=== PATIENT | female | born 1960 | race Caucasian/White ===

== ENCOUNTER → 2019-06-03 | Day surgery (SDC) | payer OTHER ==
[2019-05-30 11:27] LABS: BASOPHILS # (AUTO) 0.1 (0.0-0.1); BASOPHILS % 0.8 % (0.0-1.0); EOSINOPHILS # (AUTO) 0.4 (0.0-0.4); EOSINOPHILS % 5.5 % (0.0-6.0); HEMATOCRIT 47.7 % (34.2-44.1); HEMOGLOBIN 15.8 g/dL (12.0-16.0); LYMPHOCYTES # (AUTO) 1.3 (1.0-3.2); LYMPHOCYTES % 16.6 % (18.0-39.1); MEAN CORPUSCULAR HEMOGLOBIN 31.3 pg (28-32); MEAN CORPUSCULAR HGB CONC 33.1 g/dL (31-35); MEAN CORPUSCULAR VOLUME 94.6 fL (81-99); MONOCYTES # (AUTO) 0.5 (0.2-0.8); MONOCYTES % 6.1 % (4.4-11.3); NEUTROPHILS # (AUTO) 5.4 (2.1-6.9); NEUTROPHILS % 70.5 % (38.7-80.0); PLATELET COUNT 166 x10e3/uL (140-360); RED BLOOD COUNT 5.04 x10e6/uL (3.6-5.1); RED CELL DISTRIBUTION WIDTH 13.7 % (11.7-14.4)
[2019-05-30 11:48] LABS: ALANINE AMINOTRANSFERASE 29 IU/L (0-55); ALBUMIN/GLOBULIN RATIO 1.2 (0.8-2.0); ALKALINE PHOSPHATASE 93 IU/L (40-150); ANION GAP 17.5 mmol/L (8-16); BLOOD UREA NITROGEN 13 mg/dL (7-26); BUN/CREATININE RATIO 15 (6-25); CALCIUM 9.9 mg/dL (8.4-10.2); CARBON DIOXIDE 20 mmol/L (22-29); CHLORIDE 105 mmol/L (98-107); CREATININE, SERUM 0.87 mg/dL (0.57-1.11); EST GLOMERULAR FILTRATION RATE > 60 ML/MIN (60-); GLUCOSE 296 mg/dL (74-118); POTASSIUM 4.5 mmol/L (3.5-5.1); SODIUM 138 mmol/L (136-145)
[2019-05-30 11:49] LABS: INR 0.86; PROTHROMBIN TIME 12.2 seconds (11.9-14.5)
[~2019-06-03] VITALS: Ht 162.6 cm; Wt 77.1 kg
[2019-06-03] VITALS (13 sets, daily range): BP systolic 86–161; BP diastolic 52–112
[~2019-06-03] MED LIST: ATORVASTATIN CA20 MG PO; FENTANYL CITRATE/PF 100MCG/2 ML INJ ONE; GABAPENTIN400 MG PO; HEPARIN SOD/SOD CHLORIDE 2,000 ML ONE; HUMALOG100 UNIT/3 SC; IOPAMIDOL 370 MG/ML 200 ML INFUS..BTL INJ ONE; ISOSORBIDE MONO30 MG PO; LIDOCAINE HCL 2% LOCAL 20 ML VIAL ONE; LISINOPRIL10 MG PO; METOPROLOL PO; MIDAZOLAM HCL 2 MG/2 ML VIAL ONE; PLAVIX75 MG PO; SODIUM CHLORIDE 0.9% 1000ML 1,000 ML ONE; TOUJEO SC; VERAPAMIL HCL 2.5 MG/ML 2 ML VIAL ONE
--- OUTSIDE RECORDS SUMMARY | 2019-06-03 09:46 | XMS REPORT ---
[facility] Address Unknown Phone Unavailable Care Team Providers Care Forklift Supervisor Name Role Phone Unavailable Unavailable Payers Payer Name Policy Type Policy Number Effective Date Expiration Date Problems This patient has no known problems. Allergies, Adverse Reactions, Alerts Allergy Name Allergy Type Status Severity Reaction(s) Onset Date Inactive Date Treating Clinician Comments erythromycin base DA Active U 2018-11-24 00:00:00 metformin DA Active U 2018-11-24 00:00:00 erythromycin base DA Active U 2016-11-24 00:00:00 metformin DA Active U 2016-11-24 00:00:00 Medications This patient has no known medications. Encounters Start Date/Time End Date/Time Encounter Type Admission Type Attending Clinicians Care Facility Care Department Encounter ID 2017-04-10 00:00:00 2017-04-10 00:00:00 Outpatient [facility] [id number] 2017-04-10 00:00:00 2017-04-10 00:00:00 Outpatient [facility] [id number] 2017-04-10 00:00:00 2017-04-10 00:00:00 Outpatient [facility] [id number]
--- NOTE | 2019-07-18 16:27 | Operative Report ---
DATE OF PROCEDURE: 06/03/2019 SURGEON: Berny Arriaga DO PROCEDURES PERFORMED: 1. Conscious sedation, 30 minutes. 2. Selective coronary angiography x2. 3. Left heart catheterization. PREPROCEDURE DIAGNOSIS: Abnormal stress test with a history of coronary artery disease. POSTPROCEDURE DIAGNOSIS: Multivessel coronary artery disease. ESTIMATED BLOOD LOSS: Less than 10 mL. SPECIMENS REMOVED: None. PROCEDURE IN DETAIL: After informed consent was obtained, the patient was brought to the cardiac catheterization laboratory in a fasting and nonsedated state. Bilateral groins were prepped and draped in usual sterile fashion. The right anterior wrist was prepped and draped in usual sterile fashion. A 2% lidocaine was infiltrated over the right anterior wrist for local anesthesia. Using a micropuncture needle, the right radial artery was accessed via modified Seldinger technique and a 5/6 slender sheath was placed. Next, diagnostic coronary angiography and left heart catheterization were performed using a TIG catheter. Hemostasis was achieved via TR band. The patient tolerated the procedure well with no immediate complications and transferred to her room in stable condition. PROCEDURAL FINDINGS: 1. Left main has a 40% to 50% stenosis. 2. Proximal left anterior descending coronary artery has a patent stent present. In the midportion, there is a 70% stenosis in the [place] artery. Distal to this, there is another patent stent. There is diffuse disease in the distal LAD. 3. Left circumflex coronary has an ostial 60% to 70% stenosis. The first obtuse marginal vessel has a patent stent. The midportion of the left circumflex distal to the OM1 has a 70% to 80% severe stenosis. Distal to this stenosis, there is a stent extending into the second obtuse marginal vessel. Distal to this stent, there is a 70% stenosis. 4. The right coronary artery has a proximal 99% stenosis. The rest RCA has diffuse moderate disease. The midportion of the RCA has a patent stent. There are collaterals filling the PDA from the left coronary system. 5. Left ventricular end-diastolic pressure is 13 mmHg. RECOMMENDATIONS: Referred for bypass surgery. Berny Arriaga DO BM/MODL /[id number]
== END | disposition home or self-care (01) ==
LOC: CATH LAB 09:43
PROVIDERS: ATTEND Internal Medicine Cardiovascular Disease
DX: I25.118 Atherosclerotic heart disease of native coronary artery with other forms of angina pectoris (principal); I70.219 Atherosclerosis of native arteries of extremities with intermittent claudication, unspecified extremity; E13.8 Other specified diabetes mellitus with unspecified complications; I25.2 Old myocardial infarction; I10 Essential (primary) hypertension; I82.493 Acute embolism and thrombosis of other specified deep vein of lower extremity, bilateral; R94.39 Abnormal result of other cardiovascular function study; I83.811 Varicose veins of right lower extremity with pain; Q82.0 Hereditary lymphedema; Z01.812 Encounter for preprocedural laboratory examination; Z79.02 Long term (current) use of antithrombotics/antiplatelets; Z79.4 Long term (current) use of insulin; Z79.82 Long term (current) use of aspirin; Z95.5 Presence of coronary angioplasty implant and graft; Z82.49 Family history of ischemic heart disease and other diseases of the circulatory system
CPT/HCPCS: 36415; 80053; 85025; 85610; 93458; C1887; J2001; J2250; J3010; J7030; Q9967

== ENCOUNTER 2020-03-13 11:47 | Observation (INO) | payer MEDICARE, OTHER ==
[2020-03-11 10:20] LABS: INR 0.85; PROTHROMBIN TIME 12.1 seconds (11.9-14.5)
[2020-03-11 10:26] LABS: ALANINE AMINOTRANSFERASE 21 IU/L (0-55); ALBUMIN 3.7 g/dL (3.5-5.0); ALBUMIN/GLOBULIN RATIO 1.2 (0.8-2.0); ALKALINE PHOSPHATASE 92 IU/L (40-150); ANION GAP 16.7 mmol/L (8-16); BLOOD UREA NITROGEN 17 mg/dL (7-26); BUN/CREATININE RATIO 18 (6-25); CALCIUM 9.8 mg/dL (8.4-10.2); CARBON DIOXIDE 25 mmol/L (22-29); CHLORIDE 102 mmol/L (98-107); CREATININE, SERUM 0.94 mg/dL (0.57-1.11); EST GLOMERULAR FILTRATION RATE > 60 ML/MIN (60-); GLUCOSE 376 mg/dL (74-118); POTASSIUM 5.7 mmol/L (3.5-5.1); SODIUM 138 mmol/L (136-145)
[2020-03-11 11:38] LABS: BASOPHILS # (AUTO) 0.1 (0.0-0.1); EOSINOPHILS # (AUTO) 0.2 (0.0-0.4); EOSINOPHILS % 4.8 % (0.0-6.0); HEMATOCRIT 41.6 % (34.2-44.1); HEMOGLOBIN 13.1 g/dL (12.0-16.0); LYMPHOCYTES # (AUTO) 1.2 (1.0-3.2); LYMPHOCYTES % 23.4 % (18.0-39.1); MEAN CORPUSCULAR HEMOGLOBIN 29.4 pg (28-32); MEAN CORPUSCULAR HGB CONC 31.5 g/dL (31-35); MEAN CORPUSCULAR VOLUME 93.3 fL (81-99); MONOCYTES # (AUTO) 0.5 (0.2-0.8); NEUTROPHILS % 60.4 % (38.7-80.0); PLATELET COUNT 146 x10e3/uL (140-360); RED BLOOD COUNT 4.46 x10e6/uL (3.6-5.1); RED CELL DISTRIBUTION WIDTH 12.6 % (11.7-14.4)
--- NOTE | 2020-03-11 13:30 | NUR ---
Dr. Arriaga notified of potassium 5.7 and glucose 376. No new orders at this time.
[2020-03-12 15:13] VITALS: BP 143/68
[~2020-03-13] VITALS: Ht 160 cm; Wt 73.9 kg
[2020-03-13] VITALS (15 sets, daily range): BP systolic 126–184; BP diastolic 60–83
--- NOTE | 2020-03-13 09:14 | NUR ---
Spoke with Moraima in the lab to follow up on COVID test results. Moraima notified that patient is to have procedure today tentatively for 1500. Moraima stated she will follow up with her director.
--- NOTE | 2020-03-13 10:55 | NUR ---
Spoke with Adal in the lab regarding follow up for COVID test results. Adal notified that the physician wants to move procedure time to 1330. Adal stated she has not seen that patient's results yet come through and that she will be in touch with her Director.
[~2020-03-13 11:47] MED LIST changes: +ACIPHEX20 MG PO; +ASPIR 8181 MG PO; -FENTANYL CITRATE/PF 100MCG/2 ML INJ ONE; -HEPARIN SOD/SOD CHLORIDE 2,000 ML ONE; -IOPAMIDOL 370 MG/ML 200 ML INFUS..BTL INJ ONE; -LIDOCAINE HCL 2% LOCAL 20 ML VIAL ONE; +LIPITOR20 MG PO; +METOPROLOL SUCC50 MG PO; -MIDAZOLAM HCL 2 MG/2 ML VIAL ONE; -SODIUM CHLORIDE 0.9% 1000ML 1,000 ML ONE; +TOUJEO SOL300 UNIT/1 SC; -VERAPAMIL HCL 2.5 MG/ML 2 ML VIAL ONE
--- OUTSIDE RECORDS SUMMARY | 2020-03-13 11:49 | XMS REPORT | Clinical Summary ---
Author Author [facility] Organization [facility] Address Unknown Phone Unavailable Care Team Providers Care Sheet Ironworker Name Role Phone PCP Unavailable Allergies Comments Active Allergy Reactions Severity Noted Date pt will have a bad stomach pain. Erythromycin (Bulk) Other Medium 01/15/2007 Metformin (Bulk) Diarrhea 01/15/2007 Medications End Date Status Medication Sig Dispensed Refills Start Date Active nicotine (NICODERM CQ) 7 Apply 1 Patch 56 Patch 0 mg/24 hr to skin as 5 patchIndications: Smoker directed unmotivated to quit every 24 hours. Active nystatin (MYCOSTATIN) Apply to 30 g 0 07/09 0 100,000 unit/gram affected area 5 ointmentIndications: 2 times Tinea corporis, Rash and daily. other nonspecific skin eruption Active triamcinolone (KENALOG) Apply to 80 g 0 0.025 % affected area 5 ointmentIndications: 2 times Tinea corporis, Rash and daily. other nonspecific skin eruption Active aspirin (ASPIRIN) 81 mg Chew and 60 tablet 3 chewable swallow 1 5 tabletIndications: tablet by Peripheral vascular mouth daily. disease Active citalopram (CELEXA) 20 mg Take 1 tablet 90 tablet 1 tabletIndications: by mouth 5 Depression daily. Active pentoxifylline (TRENTAL) Take 1 tablet 270 tablet 1 400 mg extended release by mouth 3 5 tabletIndications: times daily Arteriosclerosis, with meals. Coronary artery disease involving chipewwa coronary artery of chipewwa heart without angina pectoris, Diabetes mellitus due to underlying condition without complications, IC (intermittent claudication), S/P angioplasty with stent, Smoker unmotivated to quit Active busPIRone (BUSPAR) 5 mg Take 1 tablet 90 tablet 1 tabletIndications: Smoker by mouth 3 5 unmotivated to quit times daily. Active INSULIN SYRINGE 0.5mL Use to inject 1 Box 3 30GX5/16" (ULTRA COMFORT) medication 5 syringe-needleIndications daily. Use a : Diabetes mellitus due new syringe to underlying condition each time. without complications Active ibuprofen (MOTRIN) 600 mg Take 1 tablet 30 tablet 0 tabletIndications: by mouth 5 Cellulitis of right lower every 8 hours extremity as needed for Pain or Fever. Active lancets 28 Check blood 100 Each 3 gaugeIndications: sugar 3 times 5 Diabetes mellitus, daily: before Hyperglycemia, Hemoglobin breakfast and A1c greater than 9.0% at bedtime, and once more before lunch or dinner. Active blood glucose test Check blood 50 Each 3 01 stripsIndications: sugar 3 5 Diabetes mellitus, times daily: Hyperglycemia, Hemoglobin before A1c greater than 9.0% breakfast and at bedtime, and once more before lunch or dinner. Active INSULIN SYRINGE 0.5mL Use to inject 100 Syringe 3 30GX5/16" (ULTRA COMFORT) medication 5 syringe-needleIndications daily. Use a : Diabetes mellitus, new syringe Hyperglycemia, Hemoglobin each time. A1c greater than 9.0% Active glimepiride (AMARYL) 1 mg Take 1 tablet 90 tablet 3 tabletIndications: by mouth 5 Diabetes mellitus every morning (before breakfast). Do not skip or delay meals while taking this medicine. Active metoprolol tartrate Take 1 tablet 180 tablet 3 06/06 (LOPRESSOR) 25 mg by mouth 2 6 tabletIndications: times daily. Essential hypertension, benign Active atorvastatin (LIPITOR) 20 Take 1 tablet 30 tablet 2 mg tabletIndications: by mouth at 6 Pure hypercholesterolemia bedtime nightly. Active traZODone (DESYREL) 50 mg Take 1 tablet 90 tablet 1 tabletIndications: by mouth at 6 Insomnia, unspecified bedtime nightly. Active pen needle, diabetic Inject under 1 Box 3 06/06 (NOVOFINE) 30 gauge x the skin 2 6 3" needlesIndications: times daily Type 2 diabetes mellitus Use as with complication, directed. without long-term current use of insulin Active gabapentin (NEURONTIN) Take 1 270 capsule 1 400 mg capsule by 6 capsuleIndications: Right mouth 3 times sided sciatica daily. Active rivaroxaban (XARELTO) 20 Take 1 tablet 30 tablet 2 mg tabletIndications: by mouth 6 Deep vein thrombosis daily (with (DVT) of iliac vein of dinner). right lower extremity, unspecified chronicity Active isosorbide mononitrate Take 30 mg by 0 (IMDUR) 30 mg extended mouth daily. release tablet Active isosorbide mononitrate Take 1 tablet 90 tablet 3 0 (IMDUR) 60 mg extended by mouth 7 release daily. tabletIndications: Essential hypertension, benign, Coronary artery disease involving chipewwa coronary artery of chipewwa heart without angina pectoris, Chronic systolic congestive heart failure Active atorvastatin (LIPITOR) 80 Take 1 tablet 90 tablet 3 mg tabletIndications: by mouth at 7 Coronary artery disease bedtime involving chipewwa coronary nightly. artery of chipewwa heart without angina pectoris, Peripheral vascular disease Active hydroCHLOROthiazide Take 0.5 30 tablet 3 (HYDRODIURIL) 25 mg tablets by 7 tabletIndications: mouth daily. Coronary artery disease involving chipewwa coronary artery of chipewwa heart without angina pectoris, Peripheral vascular disease Active metoprolol succinate Take 1 tablet 90 tablet 3 (TOPROL XL) 100 mg by mouth 7 extended release daily. tabletIndications: Coronary artery disease involving chipewwa coronary artery of chipewwa heart without angina pectoris, Peripheral vascular disease Active metFORMIN (GLUCOPHAGE XR) Take 2 360 tablet 0 500 mg ER extended tablets by 7 release mouth 2 times tabletIndications: Type 2 daily LAST diabetes mellitus with REFILLS - complication, without Must be seen long-term current use of at [facility]. insulin Active gabapentin (NEURONTIN) Take 1 90 capsule 2 400 mg capsule by 7 capsuleIndications: PAD mouth 3 times (peripheral artery daily. disease) Active clopidogrel (PLAVIX) 75 Take 1 tablet 90 tablet 3 mg tabletIndications: by mouth 7 Peripheral vascular daily. disease, Coronary artery disease involving chipewwa coronary artery of chipewwa heart without angina pectoris Active lisinopril (ZESTRIL) 40 Take 1 tablet 90 tablet 3 mg tabletIndications: by mouth 7 Essential hypertension daily. with goal blood pressure less than 130/80 Active Problems Problem Noted Date Current non-adherence to medical treatment 6 Type 2 diabetes mellitus with complication, without l iván-term current use 06/22/2016 of insulin Coronary artery disease involving chipewwa coronary art samir of chipewwa heart 06/22/2016 without angina pectoris Chronic obstructive pulmonary disease with acute lowe r respiratory 06/22/2016 infection Essential hypertension with goal blood pressure less than 130/80 06/22/2016 Insomnia, unspecified 06/22/2016 PAD (peripheral artery disease) 06/22/2016 Overview: S/p bypass Popliteal bypass Single current episode of major depressive disorder 06/22/2016 DVT (deep venous thrombosis) 05/06/2016 Open wound of right thigh 02/01/2016 Deep incisional surgical site infection 10/08/2015 Peripheral vascular disease 12/31/2014 Depression 11/11/2014 Right sided sciatica 11/11/2014 CAD (coronary artery disease) 11/11/2014 Refused influenza vaccine 11/11/2014 IC (intermittent claudication) 11/11/2014 S/P angioplasty with stent 11/11/2014 Smoker unmotivated to quit 11/11/2014 Arteriosclerosis 05/02/2014 Lower back pain 06/20/2013 Diabetes mellitus 01/15/2007 Essential hypertension, benign 01/15/2007 Pure hypercholesterolemia 01/15/2007 Coronary artery disease 01/15/2007 Chronic obstructive pulmonary disease 01/15/2007 Hyperglycemia Hemoglobin A1c greater than 9.0% Immunizations Name Administration Dates Next Due Influenza Vaccine 09/11/2015 (Deferred: [place] Refused) Pneumoccoccal 07/18/2015 (Deferred: [place] Refused) Pneumococcal 13-valent 08/05/2015 conj 0.5 mL injection Family History Medical History Relation Name Comments Cancer Father Arthritis Maternal ovarian Grandmother Diabetes Mother Heart Mother Hypertension Mother Relation Name Status Comments Father (Age 57) Maternal Grandmother Mother (Age 57) Social History Date Tobacco Use Types Packs/Day Years Used Current Every Day Smoker Cigarettes 0.15 40 Smokeless Tobacco: Never Used Tobacco Cessation: Ready to Quit: Yes; C ounseling Given: Yes Comments: about 4/ a day Drinks/Week oz/Week Comments Alcohol Use 0 Standard drinks or equivalent 0.0 No Sex Assigned at Date Recorded Not on file Industry Job Start Date Occupation Not on file Not on file Not on file Travel End Travel History Travel Start No recent travel history available. Last Filed Vital Signs Not on file Plan of Treatment Health Maintenance Due Date Last Done Comments DM Foot Exam (Yearly) 1980 DM Retinal Exam (Yearly) 1980 Cervical Cancer Scrn (3 1983 Yrs) Breast Cancer Scrn 2002 (Yearly) Colorectal Cancer Scrn 2012 Annual (FIT/FOBT) Age 50 to 75 CORONARY ARTERY DISEASE 07/06/2017 07/06/2016, , 11/25/2014, AGE 18 AND UP Additional history exists DM HGBA1C (Yearly) 07/06/2017 07/06/2016, 015, 11/25/2014, Additional history exists Results Not on fileafter 03/13/2019 Insurance Type Payer Benefit Subscriber ID Effective Phone Address Plan / Dates Group [employer] [place] Effective [phone] [employer] [address] for all 2005 PLANNING dates [place] [place] [facility] [address] [employer] [place] Effective [phone] [employer] [address] for all [id number] PLANNING dates [place] [place] [facility] [address] Advance Directives Date Inactivated Comments Code Status Date Activated 10/09/2015 8:34 PM Full Code 10/07/2015 4:58 PM 09/22/2015 8:43 PM Full Code 09/17/2015 8:49 PM
--- OUTSIDE RECORDS SUMMARY | 2020-03-13 11:50 | XMS REPORT | Summary of Care ---
Author Author BRYCE Macdonald M.A. Organization Unknown Address [facility] Phone Unavailable Care Team Providers Care Naphthalene Operator Name Role Phone Rose Macdonald M.A. Unavailable Unavailable MAXIMO TEJEDA, SPIKE FRAGA Unavailable Unavailable RIKA MARSH DO Unavailable Unavailable SAROJ MORROW AL, KIRSTY Unavailable Unavailable WILY RODRIGUEZ MD Unavailable Unavailable Unavailable Unavailable Functional Status Name Dates Details Functional status health issues are not documented Status: Name Dates Details Cognitive status health issues are not d ocumented Status: Problems Name Dates Details Dysphagia (787.20, R13.10) Status: Active Bilateral carotid artery disease (447.9, I73.9) Status: Active 3-vessel CAD (414.00, I25.10) Status: Active Medications Name Dates Details Atorvastatin Calcium TABS Active Clopidogrel Bisulfate 75 MG Oral Tablet * Refills: 0 Active Gabapentin 100 MG TABS * Refills: 0 Active Lisinopril TABS * Refills: 0 Active Metoprolol Succinate ER 100 MG Oral Tablet Extended Release 24 Hour * Refills: 0 Active HumaLOG 100 UNIT/ML Subcutaneous Solution * Refills: 0 Active Aspirin 81 MG TABS * Refills: 0 Active traMADol HCl - 50 MG Oral Tablet * Refills: 0 Active Allergies and Adverse Reactions Name Dates Details erythromycin (Allergy) Status: Active metFORMIN HCl TABS (Allergy) Status: Act nehemiah Procedures Procedure Dates Details History of Coronary artery bypass graft Completed Immunization Name Dates Details Immunizations not documented Family History Name Dates Details Family history of Heart trouble (429.9, I51.9) Status: Active Social History Name Dates Details - Status: Name Dates Details Smoker. current status unknown Vital Signs Date Test Result Details [id number] BP Systolic 151 mm[Hg] Status: BP Diastolic 86 mm[Hg] Status: Weight 174 lb Status: Body Mass Index Calculated 29.87 kg/m2 Status: Body Surface Area Calculated 1.84 m2 Status: Height 64 in Status: [id number] BP Systolic 148 mm[Hg] Status: Comments: Lo cation: LUE; Position: Sitting BP Diastolic 83 mm[Hg] Status: Comments: Lo cation: LUE; Position: Sitting Weight 174.9 lb Status: Body Mass Index Calculated 30.98 kg/m2 Status: Body Surface Area Calculated 1.83 m2 Status: Height 63 in Status: Heart Rate 88 /min Status: Results Date Description Value Details [id number] XRAY Chest 2 views [id number] Chest 2 views SEE NOTES Comments: PA and lateral chest: Median sternotomy wires are noted. The aorta is tortuouswith calcification the arch. Left coronary stents are noted. Thecardiomediastinal silhouette, pulmonary vasculature and mary grace are otherwisewithin normal limits. There is linear subsegmental atelectasis in the bases,improving compared to 07/11/2019. The lungs and pleural spaces are otherwiseclear. There are no acute osseous abnormalities. There is no other significantchange.IMPRESSION:No acute radiographic abnormalities in the chest. [id number] by: Yogesh Melo MDDictated Date/time: 07/31/19 14:04Electronically Signed by: Yogesh Melo MD 07/31/1914:06FINAL REPORT [id number] GI Esophagus barium [place]o [id number] Esophagus barium swallow function video SEE NOTE S Comments: EXAM: Modified barium swallowHISTORY: Oropharyngeal phase dysphagiaCOMPARISON: 07/12/2019TECHNIQUE: Patient ingested different consistencies of liquids and solid food.Video was obtained. Fluoroscopy time 36 seconds. Reference air kerma 2.03 mGyFINDINGS:The patient tolerated thin liquid, nectar, pudding and cookie. No laryngealpenetration or aspiration is seen.Refer to complete report including dietary recommendations by speechpathologist.: [id number] by: Juan Farmer MDDictated Date/time: 08/13/19 16:16Electronically Signed by: Juan Farmer MD 08/13/1916:18FINAL REPORT Plan of Care Name Dates Details Planned Observations Planned Goals not documented Planned Encounters Appointment; WILY RODRIGUEZ M.D. On: 29-Aug-2019 14:30 Instructions Name Dates Details Instructions not documented Encounters Appointment; KIRSTY KYLE M.D. Encounter Diagnosis: Problem not documented On: 10-Jun-2019 11:45 Appointment; DR SAROJ SILVERMAN Encounter Diagnosis: Problem not documented On: 12-Jun-2019 6:30 Appointment; DR SAROJ SILVERMAN Encounter Diagnosis: Problem not documented On: 31-Jul-2019 11:00 Appointment; WILY RODRIGUEZ M.D. Encounter Diagnosis: Problem not documented On: 01-Aug-2019 9:45 Appointment; KIRSTY KYLE M.D. Encounter Diagnosis: Problem not documented On: 05-Aug-2019 14:15 Appointment; KIRSTY KYLE M.D. Encounter Diagnosis: Problem not documented On: 12-Aug-2019 14:45
--- NOTE | 2020-03-13 12:00 | NUR ---
1200pt in rm#9, prepped for procedure. Alert oriented and appropriate, PERRLA, respirations even and unlabored to room air. Pulses x4 extremities equal and palpable. Cap fill brisk < 3 sec. FOR PERIPHERAL ANGIO (Dr Arriaga) Skin warm and dry integrity appears intact in general. IV #22 left hand started and presents healthy w/o s/s of infiltration or complaint. Abdomen soft and supple. pt offered toileting, denies need to urinate or defecate. Personal affects with patient. Family at bedside. Pt and family verbalizes understanding of POC. No Pre-Op Meds. Pt notable nervous about procedure. No family waiting try 1st then son if no answer after procedure. PP Dp/Pt Doppler only left hand. Rt leg notably swollen.Denies CP or SOB hand off to Frankie RN ds/rn
--- NOTE | 2020-03-13 12:15 | NUR ---
1215BLOOD glucose 383 reported to sedation team ds/rn
[2020-03-13] MEDS ORDERED: HEPARIN SOD (PORCINE) 1000 UNIT/ML 30ML ONE (12:26)
[2020-03-13] MEDS ORDERED: HEPARIN SOD/SOD CHLORIDE 2,000 ML ONE (12:27)
[2020-03-13] MEDS ORDERED: FENTANYL CITRATE/PF 100MCG/2 ML INJ ONE ×2 (12:27→14:49)
[2020-03-13] MEDS ORDERED: MIDAZOLAM HCL 2 MG/2 ML VIAL ONE ×2 (12:27→14:24)
[2020-03-13] MEDS ORDERED: LIDOCAINE HCL 2% LOCAL 20 ML VIAL ONE (12:27)
[2020-03-13] MEDS ORDERED: SODIUM CHLORIDE 0.9% 1000ML 1,000 ML ONE (12:28)
[2020-03-13] MEDS ORDERED: NITROGLYCERIN/D5W 200 MCG/ML 250 ML ONE (12:28)
[2020-03-13] MEDS ORDERED: IOPAMIDOL 300MG/ML 100 ML INFUS..BTL IV ONE (12:28)
[2020-03-13] MEDS ORDERED: HYDRALAZINE HCL 20 MG/ML VIAL ONE (14:33)
[2020-03-13] MEDS ORDERED: CLOPIDOGREL BISULFATE 75 MG TAB ONE (15:13)
[2020-03-13] MEDS ORDERED: ASPIRIN 325 MG TAB ONE (15:13)
--- NOTE | 2020-03-13 15:13 | NUR ---
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 Bedside report received from Nando FRANCISCO. Identifierx2. Alert oriented and appropriate, PERRLA, respirations even and unlabored to room air. Pulses x4 extremities equal and strong. Pedal pulses PT/DP 2+/2+/2+/2+and marked. Cap fill brisk < [address] Arriaga sheath pull and floor down time may dc home after per pt request. Skin warm and dry integrity appears D/I. IV 22g to left hand presents healthy w/o s/s of infiltration or complaint. Abdomen soft and supple. pt offered toileting, denies need to urinate or defecate. No personal affects with patient. No Family must call for PU. Pt Currently w complaint of nausea . Paged Dr Arriaga. Received order Zofran 4mg ivpx2 with immediate relief noted. Observation bed ordered and house supv. noted ds/rn
--- NOTE | 2020-03-13 15:30 | NUR ---
1530p Zofran 4mg ivp immediate relief nausea noted. ds/rn
[2020-03-13] MEDS ORDERED: ONDANSETRON HCL INJ 2MG/ML 2ML 2 MG/ML VIAL ONE (15:38)
--- NOTE | 2020-03-13 16:56 | NUR ---
1700 ACT result [address] Arriaga recheck 1hr and call results Vs stable no gross issues pain,pallor,pressure or dysrhythmia. ds/rn
--- NOTE | 2020-03-13 17:06 | NUR ---
1700 updated per pt request pt will stay night due to long down time stable vs and ekg No gross issues pain pallor pressure or dysrhythmia ds/rn
--- NOTE | 2020-03-13 18:00 | NUR ---
1800 act resulted 195 [id number] in 1hr No gross issues pain,pallor,pressure or dysrhythmia ds/rn
--- NOTE | 2020-03-13 18:08 | Operative Report ---
DATE OF PROCEDURE: SURGEON: Berny Arriaga DO PROCEDURES PERFORMED: 1. Conscious sedation, 45 minutes. 2. Abdominal aortogram. 3. Bilateral extremity angiography. 4. Third order peripheral angiography of the left lower extremity. 5. Percutaneous transluminal angioplasty and stent placement to the mid superficial femoral artery. PREPROCEDURE DIAGNOSIS: Severe peripheral artery disease with rest pain. POSTPROCEDURE DIAGNOSIS: Severe peripheral artery disease with rest pain. ESTIMATED BLOOD LOSS: Less than 20 mL. SPECIMENS REMOVED: None. PROCEDURE IN DETAIL: After informed consent was obtained, the patient was brought to the cardiac catheterization laboratory in a fasting and nonsedated state. Bilateral groins were prepped and draped in usual sterile fashion. The patient received fentanyl and midazolam, administered by the field laborer nurse. Her physiologic status and conscious state were monitored by myself and field laborer staff. A 2% lidocaine was infiltrated over the right anterior groin for local anesthesia. Using micropuncture needle, the right common femoral artery was accessed via modified Seldinger technique and a 5-Sami sheath was placed. Abdominal aortography was performed using Omni Flush catheter. This was taken up over to the iliac bifurcation and runoff was performed. She has a previously placed stent in the proximal portion of the SFA, this has 70% stenosis. There are two tandem severe 99 subtotal stenosis in the mid portion of the femoral artery. She has three vessel runoff, although sluggish from the proximal stenotic lesions. I exchanged out input across and up and over 45 cm sheath. Heparin was administered for therapeutic anticoagulation. The lesion was crossed with a [place] Advantage wire. The distal portion was angioplastied with a 4 x 150 IN.PACT Admiral paclitaxel-coated balloon. The midportion was angioplastied with a 5 x 150 and IN.PACT Admiral paclitaxel-coated balloon. The stent was angioplastied with a 6 x 150 IN.PACT Admiral paclitaxel-coated balloon. There was mid dissection, so I tried to angioplast it again and tacked up the dissection wall. However, this remained, so I decided to stent the lesion and overlapped it in the prior stent with a 6 x 80 life stent. This was then post dilated with a 6 mm balloon. Final angiography confirmed excellent results from three-vessel runoff. I pulled the sheath back and performed angiography of the right lower extremity. Of note, I did perform a 3rd order peripheral angiography of the left lower extremity prior to intervention through a Seeker catheter. The sheath was exchanged out for a short 6-Sami sheath. Hemostasis will be achieved via manual pressure once her activated clotting time has reduced. The patient tolerated the procedure well. No immediate complications and transferred back to room in stable condition. IMPRESSION: Severe peripheral artery disease and in-stent restenosis in the left femoral artery status post successful intervention. She has three-vessel runoff on each leg. Her diomede right superficial femoral artery is occluded with a patent bypass to the popliteal area. RECOMMENDATIONS: Continue dual antiplatelet therapy and aggressive risk factor modification. DO REJI Adams/MODL /[id number]
--- NOTE | 2020-03-13 19:00 | NUR ---
1900 act 155 Received room 104 ds/rn
--- NOTE | 2020-03-13 19:00 | NUR ---
1899 act resulted 15 reported to technologist Mahad and Nando Acuna at bedside. NO gross issues pain,pallor,pressure or dysrhythmia. edgardo Addendum: 03/13/20 at 2102 by Marisela Delgadillo RN 1899 act result chart error [id number]. degardo
--- NOTE | 2020-03-13 19:14 | NUR ---
191 Nando RN at bedside sheath pull in progress No gross issues pain, pallor, pressure or dysrhythmia.Phone report to floor nurse
--- OUTSIDE RECORDS SUMMARY | 2020-03-13 19:36 | XMS REPORT | Clinical Summary ---
Author Author [facility] Organization [facility] Address Unknown Phone Unavailable Care Team Providers Care Ophthalmic Photographer Name Role Phone PCP Unavailable Allergies Comments [...] Arteriosclerosis, with meals. Coronary artery disease involving tribe coronary artery of tribe heart without angina pectoris, Diabetes mellitus due [...] Essential hypertension, benign, Coronary artery disease involving tribe coronary artery of tribe heart without angina pectoris, Chronic systolic congestive heart failure Active atorvastatin (LIPITOR) 80 Take 1 tablet 90 tablet 3 mg tabletIndications: by mouth at 7 Coronary artery disease bedtime involving tribe coronary nightly. artery of tribe heart without angina pectoris, Peripheral vascular disease Active hydroCHLOROthiazide Take 0.5 30 tablet 3 (HYDRODIURIL) 25 mg tablets by 7 tabletIndications: mouth daily. Coronary artery disease involving tribe coronary artery of tribe heart without angina pectoris, Peripheral vascular disease Active metoprolol succinate Take 1 tablet 90 tablet 3 (TOPROL XL) 100 mg by mouth 7 extended release daily. tabletIndications: Coronary artery disease involving tribe coronary artery of tribe heart without angina pectoris, Peripheral vascular disease Active metFORMIN (GLUCOPHAGE XR) Take 2 360 tablet 0 500 mg ER extended tablets by 7 release mouth 2 times tabletIndications: Type 2 daily LAST diabetes mellitus with REFILLS - complication, without Must be seen long-term current use of at [facility]. insulin Active gabapentin (NEURONTIN) Take 1 90 capsule 2 400 mg capsule by 7 capsuleIndications: PAD mouth 3 times (peripheral artery daily. disease) Active clopidogrel (PLAVIX) 75 Take 1 tablet 90 tablet 3 mg tabletIndications: by mouth 7 Peripheral vascular daily. disease, Coronary artery disease involving tribe coronary artery of tribe heart without angina pectoris Active lisinopril (ZESTRIL) 40 Take 1 tablet 90 tablet 3 mg tabletIndications: by mouth 7 Essential hypertension daily. with goal blood pressure less than 130/80 Active Problems Problem Noted Date Current non-adherence to medical treatment 6 Type 2 diabetes mellitus with complication, without l iván-term current use 06/22/2016 of insulin Coronary artery disease involving tribe coronary art samir of tribe heart 06/22/2016 without angina pectoris Chronic obstructive [...] Effective Phone Address Plan / Dates Group [employer] [place] [employer] Effective [phone] [address] for all [address] PLANNING dates [place] [place] [facility] [id number] [employer] Effective [phone] [address] [employer] [address] for all [id number] PLANNING dates [place] [place] [facility] [id number] Advance Directives Date Inactivated Comments Code Status Date Activated 10/09/2015 8:34 PM Full Code 10/07/2015 4:58 PM 09/22/2015 8:43 PM Full Code 09/17/2015 8:49 PM
[2020-03-13] MEDS: SODIUM CHLORIDE 0.9% 1000ML 1,000 ML IV SCH (19:38)
[2020-03-13] MEDS ORDERED: ONDANSETRON HCL INJ 2MG/ML 2ML 2 MG/ML VIAL IV PRN (20:30)
[2020-03-13] MEDS ORDERED: HYDRALAZINE HCL 20 MG/ML VIAL IV PRN (20:30)
--- NOTE | 2020-03-13 20:55 | NUR ---
2000p sheath pull completed by Nando ACUNA and Mahad lead radiologic technologist 15min hold and stasis achieved No gross issues pain,pallor pressure or dysthrhmia. High glucose reported prior to procedure and remained NPO in CCL. Floor staff received pt in room 104 and will check blood sugar. Flat till 12midnight. Rt groin site w/o hematoma 4x4 dressing with Tegaderm in place PPx4 present and palpable post procedure. Pt to be dc per Dr Arriaga in am. Report handoff completed with Samira Acuna. Bed lock and in low position with call light at bedside.Pt and staff aware of POC.ds/lula
[2020-03-13] MEDS: MORPHINE SULFATE INJ 4 MG/ML INJ 1ML IV PRN (21:04)
[2020-03-14] MEDS: MORPHINE SULFATE INJ 4 MG/ML INJ 1ML IV PRN (01:22)
[2020-03-14 04:00] VITALS: BP 138/64
[2020-03-14] MEDS: SODIUM CHLORIDE 0.9% 1000ML 1,000 ML IV SCH (04:12)
--- NOTE | 2020-03-14 06:57 | NUR ---
REPORT GIVEN TO [facility] NURSE. AAOX3. RESTING IN BED. SR UPX2 BED LOCKED AND IN LOW POSITION. NO SIGNS OF INFILTRATION TO IV. CALL LIGHT WITHIN REACH. PEDAL PULSES PALPABLE.
[2020-03-14 07:36] VITALS: BP 140/63
[2020-03-14 08:12] VITALS: BP 140/63
--- NOTE | 2020-03-14 08:54 | NUR ---
Discharge instructions given to the patient. Patient verbalized understanding of f/u instructions. Right groin dressing site is dry and intact, no bleeding, no swelling, no bruising. Patient denies needing anything and has no complaints at this time. Call light in reach
== END 2020-03-14 10:23 | disposition home or self-care (01) ==
LOC: CATH LAB 11:47 → MED/SURG 19:33
PROVIDERS: ADMIT Internal Medicine Cardiovascular Disease; ATTEND Internal Medicine Cardiovascular Disease
DX: I73.9 Peripheral vascular disease, unspecified (principal); Z01.812 Encounter for preprocedural laboratory examination; Z11.59 Encounter for screening for other viral diseases
CPT/HCPCS: 36415 ×3; 37226; 75625; 80053; 82948 ×2; 85025; 85610; 87635; C1725; C1769 ×2; C1876; C1887 ×2; C2623 ×2; G0378 ×2; J0360; J1644; J2001; J2250; J2270 ×2; J2405 ×2; J3010; J7030 ×2; Q9967; 36247; 75630; 99152; 99153

== ENCOUNTER → 2021-09-02 | Day surgery (SDC) | payer MEDICARE ==
[2021-08-31 14:45] LABS: BASOPHILS % 0.6 % (0.0-1.0); EOSINOPHILS # (AUTO) 0.3 (0.0-0.4); EOSINOPHILS % 3.6 % (0.0-6.0); HEMATOCRIT 47.5 % (34.2-44.1); HEMOGLOBIN 14.8 g/dL (12.0-16.0); LYMPHOCYTES # (AUTO) 1.5 (1.0-3.2); LYMPHOCYTES % 21.3 % (18.0-39.1); MEAN CORPUSCULAR HEMOGLOBIN 30.8 pg (28-32); MEAN CORPUSCULAR HGB CONC 31.2 g/dL (31-35); MONOCYTES # (AUTO) 0.6 (0.2-0.8); MONOCYTES % 8.3 % (4.4-11.3); NEUTROPHILS # (AUTO) 4.6 (2.1-6.9); NEUTROPHILS % 65.9 % (38.7-80.0); PLATELET COUNT 171 x10e3/uL (140-360); RED CELL DISTRIBUTION WIDTH 12.9 % (11.7-14.4)
[2021-08-31 14:57] LABS: INR 0.95; PROTHROMBIN TIME 13.1 seconds (11.9-14.5)
[2021-08-31 15:04] LABS: ALBUMIN 3.5 g/dL (3.5-5.0); ANION GAP 19.3 mmol/L (8-16); CALCIUM 9.9 mg/dL (8.4-10.2); POTASSIUM 5.3 mmol/L (3.5-5.1)
[2021-08-31 15:16] LABS: CREATININE, SERUM 0.93 mg/dL (0.57-1.11)
[~2021-09-02] VITALS: Ht 160 cm; Wt 68.5 kg
[2021-09-02] VITALS (11 sets, daily range): BP systolic 120–163; BP diastolic 64–92
[~2021-09-02] MED LIST changes: +AMLODIPINE BESYL5 MG PO; +BIOTIN10000 MCG PO; +FENTANYL CITRATE/PF 100MCG/2 ML INJ ONE; +FUROSEMIDE40 MG PO; +HEPARIN SOD (PORCINE) 1000 UNIT/ML 30ML ONE; +HEPARIN SOD/SOD CHLORIDE 2,000 ML ONE; +IOPAMIDOL 370 MG/ML 200 ML INFUS..BTL INJ ONE; +LIDOCAINE HCL 2% LOCAL 20 ML VIAL ONE; +MIDAZOLAM HCL 2 MG/2 ML VIAL ONE; +NITROGLYCERIN/D5W 200 MCG/ML 250 ML ONE; +OMEPRAZOLE40 MG PO; +SODIUM CHLORIDE 0.9% 1000ML 1,000 ML ONE; +SUPER B COMPLEX PO; +VERAPAMIL HCL 2.5 MG/ML 2 ML VIAL ONE
== END | disposition home or self-care (01) ==
LOC: CATH LAB 06:54
PROVIDERS: ATTEND Internal Medicine Cardiovascular Disease
DX: I25.810 Atherosclerosis of coronary artery bypass graft(s) without angina pectoris (principal); Z95.1 Presence of aortocoronary bypass graft; R94.39 Abnormal result of other cardiovascular function study; I70.219 Atherosclerosis of native arteries of extremities with intermittent claudication, unspecified extremity; I71.9 Aortic aneurysm of unspecified site, without rupture; I83.811 Varicose veins of right lower extremity with pain; I10 Essential (primary) hypertension; E11.9 Type 2 diabetes mellitus without complications; E78.5 Hyperlipidemia, unspecified; Z01.812 Encounter for preprocedural laboratory examination; Z20.822 Contact with and (suspected) exposure to COVID-19; Z79.02 Long term (current) use of antithrombotics/antiplatelets; Z79.82 Long term (current) use of aspirin; Z79.899 Other long term (current) drug therapy; Z95.5 Presence of coronary angioplasty implant and graft; Z95.820 Peripheral vascular angioplasty status with implants and grafts; Z82.49 Family history of ischemic heart disease and other diseases of the circulatory system; Z83.3 Family history of diabetes mellitus
CPT/HCPCS: 36415; 80053; 85025; 85610; 93459; C1769; C1887; J1644; J2001; J2250; J3010; J7030; Q9967; U0002; 99152; 99153

== ENCOUNTER 2021-09-24 12:39 | Inpatient (IN) | payer MEDICARE ==
[~2021-09-24] VITALS: Ht 160 cm; Wt 68.0 kg
[~2021-09-24 12:39] MED LIST changes: -FENTANYL CITRATE/PF 100MCG/2 ML INJ ONE; -HEPARIN SOD (PORCINE) 1000 UNIT/ML 30ML ONE; -HEPARIN SOD/SOD CHLORIDE 2,000 ML ONE; -IOPAMIDOL 370 MG/ML 200 ML INFUS..BTL INJ ONE; -LIDOCAINE HCL 2% LOCAL 20 ML VIAL ONE; -MIDAZOLAM HCL 2 MG/2 ML VIAL ONE; -NITROGLYCERIN/D5W 200 MCG/ML 250 ML ONE; -SODIUM CHLORIDE 0.9% 1000ML 1,000 ML ONE; -VERAPAMIL HCL 2.5 MG/ML 2 ML VIAL ONE
[2021-09-24 13:28] LABS: BASOPHILS # (AUTO) 0.1 (0.0-0.1); BASOPHILS % 0.4 % (0.0-1.0); EOSINOPHILS % 0.2 % (0.0-6.0); HEMATOCRIT 49.5 % (34.2-44.1); LYMPHOCYTES # (AUTO) 0.7 (1.0-3.2); LYMPHOCYTES % 5.3 % (18.0-39.1); MEAN CORPUSCULAR HEMOGLOBIN 30.9 pg (28-32); MEAN CORPUSCULAR HGB CONC 32.3 g/dL (31-35); MEAN CORPUSCULAR VOLUME 95.6 fL (81-99); MONOCYTES # (AUTO) 0.5 (0.2-0.8); MONOCYTES % 4.2 % (4.4-11.3); NEUTROPHILS # (AUTO) 11.6 (2.1-6.9); NEUTROPHILS % 89.7 % (38.7-80.0); PLATELET COUNT 174 x10e3/uL (140-360); RED BLOOD COUNT 5.18 x10e6/uL (3.6-5.1); RED CELL DISTRIBUTION WIDTH 12.7 % (11.7-14.4)
[2021-09-24 13:52] LABS: CLARITY,URINE SL CLOUDY (CLEAR); COLOR,URINE YELLOW (YELLOW); KETONES,URINE >=160 (NEGATIVE); LEUKOCYTE ESTERASE ,URINE NEGATIVE (NEGATIVE); NITRITE,URINE NEGATIVE (NEGATIVE); PROTEIN,URINE DIPSTICK >=300 (NEGATIVE); URINE UROBILINOGEN 0.2 mg/dL (0.2 - 1)
[2021-09-24 13:54] LABS: ALBUMIN 4.1 g/dL (3.5-5.0); ALBUMIN/GLOBULIN RATIO 1.2 (0.8-2.0); ANION GAP 23.3 mmol/L (8-16); CALCIUM 9.6 mg/dL (8.4-10.2); CREATININE, SERUM 0.89 mg/dL (0.57-1.11); POTASSIUM 4.3 mmol/L (3.5-5.1)
[2021-09-24 13:59] LABS: BACTERIA,URINE FEW /HPF; EPITHELIAL CELLS,URINE MODERATE /LPF; RBC,URINE 0-5 /HPF (0-5); WBC,URINE (MAN) 0-5 /HPF (0-5)
[2021-09-24] MEDS ORDERED: ONDANSETRON HCL INJ 2MG/ML 2ML 2 MG/ML VIAL IV STA ×2 (14:39→18:31)
[2021-09-24] MEDS ORDERED: Morphine 4mg Syringe 4 MG/ML INJ IV STA (14:39)
[2021-09-24] MEDS ORDERED: SODIUM CHLORIDE 0.9% 1000ML 1,000 ML IV STA (14:39)
[2021-09-24 15:05] LABS: CREATINE KINASE MB 2.2 ng/mL (0-5.0)
[2021-09-24] MEDS ORDERED: SODIUM CHLORIDE 0.9% 50ML 50 ML ONE (16:35)
[2021-09-24] MEDS ORDERED: IOPAMIDOL 370 MG/ML 200 ML INFUS..BTL INJ ONE (16:35)
[2021-09-24] MEDS ORDERED: LEVOFLOXACIN 500MG/D5W 100ML 100 ML IV ONE (18:15)
[2021-09-24] MEDS ORDERED: Morphine 2mg Syringe 2 MG/ML SYR ONE (18:37)
[2021-09-24] MEDS ORDERED: Morphine 4mg Syringe 4 MG/ML INJ IV ONE (18:45)
[2021-09-24] MEDS ORDERED: SODIUM CHLORIDE 0.9% 1000ML 1,000 ML IV SCH (20:00)
[2021-09-24] MEDS ORDERED: DEXTROSE 50% SYRINGE 50 ML IV PRN (20:00)
[2021-09-24] MEDS: INSULIN LISPRO 100 UNIT/1 ML 3ML VIAL SQ SCH (21:49)
[2021-09-24] MEDS: HYDROMORPHONE 1MG/1ML INJ IV PRN (21:58)
[2021-09-24] MEDS: IPRATROPIUM BROMIDE 0.02% 2.5 ML NEB NEB SCH (22:25)
[2021-09-24] MEDS: ALBUTEROL SULF 0.083% NEB SOLN 3 ML NEB NEB SCH (22:25)
[2021-09-25] VITALS (9 sets, daily range): BP systolic 134–172; BP diastolic 66–79
[2021-09-25] MEDS: HYDROMORPHONE 1MG/1ML INJ IV PRN ×4 (02:30→15:15)
[2021-09-25] MEDS: ALBUTEROL SULF 0.083% NEB SOLN 3 ML NEB NEB SCH ×6 (02:30→22:41)
[2021-09-25 02:44] LABS: CREATINE KINASE MB 1.8 ng/mL (0-5.0)
[2021-09-25 04:57] LABS: BASOPHILS % 0.3 % (0.0-1.0); EOSINOPHILS % 0.2 % (0.0-6.0); HEMATOCRIT 44.3 % (34.2-44.1); HEMOGLOBIN 14.3 g/dL (12.0-16.0); LYMPHOCYTES # (AUTO) 0.9 (1.0-3.2); LYMPHOCYTES % 9.2 % (18.0-39.1); MEAN CORPUSCULAR HEMOGLOBIN 30.9 pg (28-32); MEAN CORPUSCULAR HGB CONC 32.3 g/dL (31-35); MEAN CORPUSCULAR VOLUME 95.7 fL (81-99); MONOCYTES # (AUTO) 0.8 (0.2-0.8); MONOCYTES % 8.4 % (4.4-11.3); NEUTROPHILS # (AUTO) 7.7 (2.1-6.9); NEUTROPHILS % 81.6 % (38.7-80.0); PLATELET COUNT 150 x10e3/uL (140-360); RED BLOOD COUNT 4.63 x10e6/uL (3.6-5.1); RED CELL DISTRIBUTION WIDTH 12.7 % (11.7-14.4)
[2021-09-25 05:22] LABS: ALBUMIN 3.3 g/dL (3.5-5.0); ALBUMIN/GLOBULIN RATIO 1.1 (0.8-2.0); ANION GAP 17.1 mmol/L (8-16); CREATININE, SERUM 0.76 mg/dL (0.57-1.11); POTASSIUM 4.1 mmol/L (3.5-5.1)
[2021-09-25 05:28] LABS: CREATINE KINASE MB 1.3 ng/mL (0-5.0)
[2021-09-25] MEDS: ONDANSETRON HCL INJ 2MG/ML 2ML 2 MG/ML VIAL IV PRN ×2 (06:13→12:51)
[2021-09-25] MEDS: IPRATROPIUM BROMIDE 0.02% 2.5 ML NEB NEB SCH ×3 (06:15→20:34)
[2021-09-25] MEDS: INSULIN LISPRO 100 UNIT/1 ML 3ML VIAL SQ SCH ×4 (08:10→20:49)
[2021-09-25] MEDS: LEVOFLOXACIN 750MG/D5W 150ML 150 ML IV SCH (08:10)
[2021-09-25] MEDS ORDERED: PANTOPRAZOLE SOD 40 MG TABEC PO SCH (09:00)
[2021-09-25] MEDS ORDERED: LEVOFLOXACIN 750MG/D5W 150ML IV SCH (09:00)
[2021-09-25] MEDS ORDERED: PROMETHAZINE 12.5MG/ NACL 0.9% 12.5 MG/50 ML BAG IV ONE (09:00)
[2021-09-25] MEDS: LISINOPRIL 20 MG TAB PO SCH (09:23)
[2021-09-25] MEDS ORDERED: PROMETHAZINE 12.5MG/ NACL 0.9% 12.5 MG/50 ML BAG IV PRN (12:30)
[2021-09-25] MEDS: GABAPENTIN 400 MG CAP PO SCH ×2 (12:51→20:46)
[2021-09-25] MEDS: CEFEPIME 1 GM in SODIUM CHLORIDE 0.9% 50ML 50 ML IV SCH ×2 (14:27→20:46)
[2021-09-25] MEDS: FUROSEMIDE 40 MG TAB PO SCH (18:06)
[2021-09-25] MEDS: ACETAMINOPHEN 325 MG TAB PO PRN (18:06)
[2021-09-25 18:24] LABS: CREATINE KINASE MB 1.2 ng/mL (0-5.0)
[2021-09-25] MEDS ORDERED: ATORVASTATIN 40 MG TAB PO SCH (21:00)
[2021-09-26 00:10] VITALS: BP 126/51
[2021-09-26] MEDS: ACETAMINOPHEN 325 MG TAB PO PRN (00:44)
[2021-09-26] MEDS: IPRATROPIUM BROMIDE 0.02% 2.5 ML NEB NEB SCH ×3 (04:06→11:00)
[2021-09-26] MEDS: ALBUTEROL SULF 0.083% NEB SOLN 3 ML NEB NEB SCH ×4 (04:07→14:17)
[2021-09-26 04:25] VITALS: BP 123/50
[2021-09-26 06:43] LABS: BASOPHILS % 0.4 % (0.0-1.0); EOSINOPHILS % 0.3 % (0.0-6.0); HEMATOCRIT 38.9 % (34.2-44.1); HEMOGLOBIN 12.4 g/dL (12.0-16.0); LYMPHOCYTES # (AUTO) 1.1 (1.0-3.2); LYMPHOCYTES % 14.8 % (18.0-39.1); MEAN CORPUSCULAR HEMOGLOBIN 30.6 pg (28-32); MEAN CORPUSCULAR HGB CONC 31.9 g/dL (31-35); MONOCYTES # (AUTO) 0.7 (0.2-0.8); MONOCYTES % 9.3 % (4.4-11.3); NEUTROPHILS # (AUTO) 5.5 (2.1-6.9); NEUTROPHILS % 74.8 % (38.7-80.0); PLATELET COUNT 122 x10e3/uL (140-360); RED BLOOD COUNT 4.05 x10e6/uL (3.6-5.1); RED CELL DISTRIBUTION WIDTH 12.8 % (11.7-14.4)
[2021-09-26 07:06] LABS: ALBUMIN 2.7 g/dL (3.5-5.0); ANION GAP 16.4 mmol/L (8-16); CALCIUM 8.7 mg/dL (8.4-10.2); CREATININE, SERUM 0.82 mg/dL (0.57-1.11); POTASSIUM 3.4 mmol/L (3.5-5.1)
[2021-09-26 08:00] VITALS: BP 152/57
[2021-09-26] MEDS ORDERED: POTASSIUM CHLORIDE 10MEQ EA PO ONE (08:45)
[2021-09-26] MEDS ORDERED: METOPROLOL SUCCINATE 50 MG TAB XL PO SCH (09:00)
[2021-09-26] MEDS ORDERED: AMLODIPINE BESYLATE 5 MG TAB PO SCH (09:00)
[2021-09-26] MEDS ORDERED: CLOPIDOGREL BISULFATE 75 MG TAB PO SCH (09:00)
[2021-09-26] MEDS: FUROSEMIDE 40 MG TAB PO SCH (09:13)
[2021-09-26] MEDS: CEFEPIME 1 GM in SODIUM CHLORIDE 0.9% 50ML 50 ML IV SCH (09:13)
[2021-09-26] MEDS: INSULIN LISPRO 100 UNIT/1 ML 3ML VIAL SQ SCH ×2 (09:13→11:38)
[2021-09-26] MEDS: GABAPENTIN 400 MG CAP PO SCH ×2 (09:14→13:51)
[2021-09-26] MEDS: LISINOPRIL 20 MG TAB PO SCH (09:15)
[2021-09-26 09:45] VITALS: BP 152/57
[2021-09-26] MEDS: LEVOFLOXACIN 750MG/D5W 150ML 150 ML IV SCH (10:03)
[2021-09-26 13:08] VITALS: BP 144/61
== END 2021-09-26 14:12 | disposition home or self-care (01) | DRG 179 ==
LOC: ER 12:52 → ERHOLD 19:57 → MED/SURG2 21:58
PROVIDERS: ADMIT Internal Medicine; ATTEND Internal Medicine
DX: J15.6 Pneumonia due to other Gram-negative bacteria (principal); I10 Essential (primary) hypertension; E11.9 Type 2 diabetes mellitus without complications; J44.9 Chronic obstructive pulmonary disease, unspecified; R91.8 Other nonspecific abnormal finding of lung field; K29.70 Gastritis, unspecified, without bleeding; K29.80 Duodenitis without bleeding; I25.2 Old myocardial infarction; F17.210 Nicotine dependence, cigarettes, uncomplicated; Z95.1 Presence of aortocoronary bypass graft; Z88.8 Allergy status to other drugs, medicaments and biological substances; Z91.048 Other nonmedicinal substance allergy status; Z90.49 Acquired absence of other specified parts of digestive tract; Z95.820 Peripheral vascular angioplasty status with implants and grafts; Z20.822 Contact with and (suspected) exposure to COVID-19; Z79.4 Long term (current) use of insulin
CPT/HCPCS: 36415; 71045; 71250; 74177; 80053; 81001; 82150; 82550; 82553; 82948; 83690; 84484; 85025; 87040; 93005; 94640; 94799; 99284; J0692; J1170; J1956; J2270; J2405; J2550; J7030; Q9967; U0002

== ENCOUNTER 2021-10-26 06:29 | Emergency (ER) | payer MEDICARE ==
[~2021-10-26] VITALS: Ht 160 cm; Wt 68.0 kg
[2021-10-26] MEDS ORDERED: DULCOLAX10 MG PR (09:04)
[2021-10-26] MEDS ORDERED: COLACE100 MG PO (09:04)
[2021-10-26] MEDS ORDERED: MAGNESIUM CITR296 ML PO (09:04)
== END 2021-10-26 09:16 | disposition home or self-care (01) ==
LOC: ER 06:36
DX: K59.00 Constipation, unspecified (principal); R10.9 Unspecified abdominal pain; E11.65 Type 2 diabetes mellitus with hyperglycemia; I10 Essential (primary) hypertension; J44.9 Chronic obstructive pulmonary disease, unspecified; J45.909 Unspecified asthma, uncomplicated; K21.9 Gastro-esophageal reflux disease without esophagitis; I25.2 Old myocardial infarction
CPT/HCPCS: 74018; 99283

== ENCOUNTER → 2022-02-04 | Outpatient (CLI) | payer MEDICARE ==
[~2022-02-04] MED LIST changes: +AMITRIPTYLINE H25 MG PO; +ASPIRIN81 MG PO; +COLACE100 MG PO; +DULCOLAX10 MG PR; +MAGNESIUM CITR296 ML PO; +OZEMPIC0.25 MG/0. SC; +PROTONIX20 MG PO
== END ==
LOC: NM 08:07
PROVIDERS: ATTEND Internal Medicine Gastroenterology
DX: Z12.11 Encounter for screening for malignant neoplasm of colon (principal); K31.84 Gastroparesis; R10.10 Upper abdominal pain, unspecified; K20.90 Esophagitis, unspecified without bleeding; K29.60 Other gastritis without bleeding
CPT/HCPCS: 78264; A9541

== ENCOUNTER → 2022-02-07 | Day surgery (SDC) | payer MEDICARE ==
[2022-02-03 14:49] LABS: BASOPHILS % 0.7 % (0.0-1.0); EOSINOPHILS # (AUTO) 0.3 (0.0-0.4); EOSINOPHILS % 4.6 % (0.0-6.0); HEMATOCRIT 44.2 % (34.2-44.1); HEMOGLOBIN 14.3 g/dL (12.0-16.0); LYMPHOCYTES # (AUTO) 1.8 (1.0-3.2); LYMPHOCYTES % 29.1 % (18.0-39.1); MEAN CORPUSCULAR HEMOGLOBIN 31.1 pg (28-32); MEAN CORPUSCULAR HGB CONC 32.4 g/dL (31-35); MEAN CORPUSCULAR VOLUME 96.1 fL (81-99); MONOCYTES # (AUTO) 0.6 (0.2-0.8); NEUTROPHILS # (AUTO) 3.4 (2.1-6.9); NEUTROPHILS % 55.4 % (38.7-80.0); PLATELET COUNT 213 x10e3/uL (140-360); RED CELL DISTRIBUTION WIDTH 13.2 % (11.7-14.4)
[~2022-02-07] MED LIST changes: +FENTANYL CITRATE/PF 100MCG/2 ML INJ ONE; +LIDOCAINE HCL 2% LOCAL INJ 5 ML SDV VIAL INJ ONE; +POVIDONE IODINE 0.05% 0.05 % ML PO ONE; +PROPOFOL IV EMULSION 10 MG/ML 20 ML VIAL ONE
[2022-02-07 11:25] VITALS: BP 158/90
== END | disposition home or self-care (01) ==
LOC: OR 07:45
PROVIDERS: ATTEND Internal Medicine Gastroenterology
DX: K59.00 Constipation, unspecified (principal); K63.5 Polyp of colon; K57.30 Diverticulosis of large intestine without perforation or abscess without bleeding; K64.8 Other hemorrhoids; K31.84 Gastroparesis; K29.60 Other gastritis without bleeding; K20.90 Esophagitis, unspecified without bleeding; K21.9 Gastro-esophageal reflux disease without esophagitis; Z71.3 Dietary counseling and surveillance; I25.810 Atherosclerosis of coronary artery bypass graft(s) without angina pectoris; I10 Essential (primary) hypertension; E11.9 Type 2 diabetes mellitus without complications; J44.9 Chronic obstructive pulmonary disease, unspecified; I89.0 Lymphedema, not elsewhere classified; G62.9 Polyneuropathy, unspecified; F17.210 Nicotine dependence, cigarettes, uncomplicated; Z71.6 Tobacco abuse counseling; Z88.1 Allergy status to other antibiotic agents; Z88.8 Allergy status to other drugs, medicaments and biological substances; Z91.048 Other nonmedicinal substance allergy status; Z01.810 Encounter for preprocedural cardiovascular examination; Z01.812 Encounter for preprocedural laboratory examination; Z20.822 Contact with and (suspected) exposure to COVID-19; Z79.82 Long term (current) use of aspirin; Z79.4 Long term (current) use of insulin; Z79.02 Long term (current) use of antithrombotics/antiplatelets; Z79.899 Other long term (current) drug therapy; Z95.1 Presence of aortocoronary bypass graft; Z95.5 Presence of coronary angioplasty implant and graft; Z86.73 Personal history of transient ischemic attack (TIA), and cerebral infarction without residual deficits
CPT/HCPCS: 36415 ×2; 45380; 82948; 85025; 93005; J2001; J2704; J3010; U0002